=== PATIENT | male | born 1950 | race Caucasian/White ===

== ENCOUNTER 2017-09-14 21:43 | Emergency (ER) | payer MEDICARE, OTHER ==
--- NOTE | 2017-09-14 23:35 | C.PDOC ---
History Of Present Illness Pt c/o left heel pain. Denies injury. Time Seen by Provider: 09/14/17 22:39 Chief Complaint (Nursing): Lower Extremity Problem/Injury History Per: Patient Onset/Duration Of Symptoms: Days (2-3) Current Symptoms Are (Timing): Still Present Severity: Moderate Additional History Per: Prior Records - Ankle/Foot Feet: 1 - Pain Past Medical History Reviewed: Historical Data, Nursing Documentation, Vital Signs Vital Signs: Last Vital Signs Temp 98.3 F 09/14/17 21:50 Pulse 97 H 09/14/17 21:50 Resp 18 09/14/17 21:50 BP 181/107 H 09/14/17 21:50 Pulse Ox 97 09/14/17 23:35 - Medical History PMH: HTN Family History: States: Unknown Family Hx - Social History Hx Alcohol Use: No Hx Substance Use: No Review Of Systems Except As Marked, All Systems Reviewed And Found Negative. Constitutional: Negative for: Fever Cardiovascular: Negative for: Chest Pain Respiratory: Negative for: Shortness of Breath Gastrointestinal: Negative for: Vomiting, Abdominal Pain Musculoskeletal: Positive for: Foot Pain (Left heel). Negative for: Neck Pain, Back Pain, Leg Pain Skin: Negative for: Rash Neurological: Negative for: Weakness, Numbness, Seizures, Altered Mental Status Physical Exam - Physical Exam Appears: Non-toxic, No Acute Distress Skin: Normal Color, Warm, Dry, No Rash Head: Atraumatic, Normacephalic Eye(s): bilateral: PERRL, EOMI Neck: Normal ROM, Supple Cardiovascular: Rhythm Regular Respiratory: Normal Breath Sounds, No Accessory Muscle Use Gastrointestinal/Abdominal: Soft, No Tenderness Extremity: Normal ROM, Tenderness (Posterior left heel), No Pedal Edema, No Calf Tenderness, Capillary Refill (wnl), No Deformity, No Swelling Extremity: Bilateral: Normal Color And Temperature Pulses: Left Dorsalis Pedis: Normal Neurological/Psych: Oriented x3, Normal Motor, Normal Sensation ED Course And Treatment O2 Sat by Pulse Oximetry: 97 Pulse Ox Interpretation: Normal - Other Rad Left heel x-rays X-Ray: Interpreted by Me, Viewed By Me Interpretation: Small heel spur. No fx. Medical Decision Making Medical Decision Making: Will increase Fosinopril to from 10mg to 20mg daily. Disposition Counseled Patient/Family Regarding: Studies Performed, Diagnosis, Need For Followup, Rx Given - Disposition Referrals: Venkatesh Gomez MD [Staff Provider] - Disposition: HOME/ ROUTINE Disposition Time: 23:38 Condition: IMPROVED Additional Instructions: Follow up with your doctor within 1 week for further evaluation and treatment. Return to the ER if you develop chest pain, shortness of breath, redness, swelling, worsening of symptoms or if you have any other concerns. Prescriptions: Fosinopril Sodium 20 mg PO DAILY #30 tab Ibuprofen [Motrin Tab] 600 mg PO Q8 PRN #30 tab PRN Reason: Pain, Moderate (4-7) Instructions: Heel Spur (ED), Hypertension (ED) Forms: [employer] (Greenlandic) - Clinical Impression Clinical Impression: Pain of left heel, Hypertension
[2017-09-14 23:57] VITALS: BP 152/89; PULSE 86; RESP 20; TEMP 98; O2SAT 98
--- NOTE | 2017-09-15 08:50 | RAD ---
PROCEDURE: Radiographs of the left calcaneus/hindfoot. HISTORY: Pain COMPARISON: None available. TECHNIQUE: Frontal and lateral radiographs of the calcaneus. FINDINGS: No fracture or joint dislocation. No focal lesion. No calcaneal spur. IMPRESSION: Unremarkable radiographs of the left calcaneus /hindfoot.
== END 2017-09-14 23:56 | disposition home or self-care (01) ==
LOC: C.ER 21:43
DX: I10 Essential (primary) hypertension (principal); M79.672 Pain in left foot